=== PATIENT | female | born 1965 | race Caucasian/White ===

== ENCOUNTER 2017-03-01 09:53 | Emergency (ER) | payer OTHER ==
[~2017-03-01] VITALS: Ht 177.8 cm; Wt 110.4 kg
[~2017-03-01 09:53] MED LIST: ASPI-515 PO; AZIT-14 PO; CHOL500015 PO; DIPH25CA61 PO; ECHINACEA PO; LACT1CAP40 PO; LEVO25TA4 PO; MULT-516 PO; OMEP-110 PO; SIMV40TA3 PO; TAMS-11 PO; TRAZ100T15 PO; [UNRECOGNIZED DRUG - OTHER] PO
[2017-03-01 10:11] VITALS: BP 157/86
[2017-03-01] MEDS ORDERED: HYDROmorphone 1 MG/ML, 1ML IVPush PRN (11:30)
[2017-03-01] MEDS ORDERED: ONDANSETRON 2MG/ML, 2ML IVPush ONE (11:30)
[2017-03-01] MEDS ORDERED: SODIUM CHLORIDE FLUSH 10ML SYR IVF ONE (11:30)
[2017-03-01] MEDS ORDERED: SODIUM CHLORIDE 0.9% 1,000ML IVBOLUS ONE (11:30)
[2017-03-01 11:45] LABS: ASPARTATE AMINO TRANSFERASE 49 U/L (15-37); BLOOD UREA NITROGEN 15 mg/dL (7-18)
[2017-03-01] MEDS ORDERED: HYDROmorphone 1 MG/ML, 1ML ONE (12:12)
[2017-03-01] MEDS ORDERED: ONDANSETRON 2MG/ML, 2ML ONE (12:12)
== END 2017-03-01 13:30 | disposition home or self-care (01) ==
LOC: ED 12:49
DX: R19.7 Diarrhea, unspecified (principal); R10.84 Generalized abdominal pain; E78.5 Hyperlipidemia, unspecified; Z90.49 Acquired absence of other specified parts of digestive tract; Z90.710 Acquired absence of both cervix and uterus; Z88.0 Allergy status to penicillin; Z88.2 Allergy status to sulfonamides; Z88.5 Allergy status to narcotic agent
CPT/HCPCS: 36415; 80053; 83690; 83735; 85025; 96374; 96375; 99284; J1170; J2405; J7030

== ENCOUNTER 2017-05-17 09:10 | Emergency (ER) | payer OTHER ==
[~2017-05-17] VITALS: Ht 175.3 cm; Wt 111.6 kg
[~2017-05-17 09:10] MED LIST changes: -AZIT-14 PO; +AZIT250T89 PO
[2017-05-17] MEDS ORDERED: SODIUM CHLORIDE 0.9% 1,000 ML IV ONE (10:31)
[2017-05-17] MEDS ORDERED: MAALOX/HYOSCYAMINE/LIDOCAINE 45 ML BOTTLE ONE (10:44)
[2017-05-17] MEDS ORDERED: HYDROmorphone 1 MG/ML, 1ML ONE (10:44)
[2017-05-17] MEDS ORDERED: ONDANSETRON 2MG/ML, 2ML ONE (10:44)
[2017-05-17] MEDS ORDERED: FAMOTIDINE 20 MG/2 ML ONE (10:44)
[2017-05-17] MEDS ORDERED: SODIUM CHLORIDE FLUSH 10ML SYR IVF ONE (11:00)
[2017-05-17] MEDS ORDERED: MAALOX/HYOSCYAMINE/LIDOCAINE 45 ML BOTTLE PO ONE (11:00)
[2017-05-17] MEDS ORDERED: HYDROmorphone 1 MG/ML, 1ML IVPush PRN (11:00)
[2017-05-17] MEDS ORDERED: FAMOTIDINE 20 MG/2 ML IVP ONE (11:00)
[2017-05-17] MEDS ORDERED: ONDANSETRON 2MG/ML, 2ML IVPush ONE (11:00)
[2017-05-17] MEDS ORDERED: SODIUM CHLORIDE 0.9% 1,000ML IVBOLUS ONE (11:00)
[2017-05-17 11:30] LABS: PATH.CAST-FLAG NOT PRESENT; SPERM-FLAG NOT PRESENT; SRC-FLAG NOT PRESENT; XTAL-FLAG NOT PRESENT; YLC-FLAG NOT PRESENT
[2017-05-17 11:45] LABS: BLOOD UREA NITROGEN 11 mg/dL (7-18)
[2017-05-17 11:53] LABS: ASPARTATE AMINO TRANSFERASE 100 U/L (15-37)
[2017-05-17] MEDS ORDERED: DIPHENHYDRAMINE 50 MG/ML, 1ML ONE (12:35)
[2017-05-17 15:44] VITALS: BP 141/75
[2017-05-17] MEDS ORDERED: DIPHENHYDRAMINE 50 MG/ML, 1ML IVPush ONE (16:00)
== END 2017-05-17 15:51 | disposition home or self-care (01) ==
LOC: ED 09:54
DX: K29.20 Alcoholic gastritis without bleeding (principal); R10.13 Epigastric pain; F10.10 Alcohol abuse, uncomplicated; E78.5 Hyperlipidemia, unspecified; Z86.73 Personal history of transient ischemic attack (TIA), and cerebral infarction without residual deficits; Z90.49 Acquired absence of other specified parts of digestive tract; Z90.710 Acquired absence of both cervix and uterus
CPT/HCPCS: 36415; 74022; 76700; 80053; 81001; 83605; 83690; 84702; 84703; 85025; 85610; 93005; 96361; 96374; 96375; 99285; J1170; J1200; J2405; J7030; S0028

== ENCOUNTER → 2017-06-20 | Outpatient (CLI) | payer OTHER | END | disposition home or self-care (01) | LOC: RAD 10:28 | PROVIDERS: ATTEND Nurse Practitioner Family | DX: M51.87 Other intervertebral disc disorders, lumbosacral region (principal) | CPT/HCPCS: 72114 ==

== ENCOUNTER 2020-08-19 15:03 | Inpatient (IN) | payer OTHER ==
[~2020-08-19] VITALS: Ht 175.3 cm; Wt 102.4 kg
[~2020-08-19 15:03] MED LIST changes: +CYCL-259 PO; +GABA300C10 PO; +HYDR25TA6 PO; +SIMV40TA20 PO; -SIMV40TA3 PO; +TRAZ-175 PO; -TRAZ100T15 PO
--- NOTE | 2020-08-19 15:41 | NUR ---
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
[2020-08-19] MEDS ORDERED: SODIUM CHLORIDE FLUSH 10ML SYR IVF ONE (16:30)
[2020-08-19 16:39] LABS: MEAN CORPUSCULAR HEMOGLOBIN 30.3 pg (27.0-34.8); MEAN CORPUSCULAR HGB CONC 31.5 g/dL (32.4-35.8); MEAN PLATELET VOLUME 9.7 fL (7.4-10.4); PLATELET COUNT 209 x10^3/uL (130-400)
--- NOTE | 2020-08-19 16:44 | NUR ---
PT TO RADIOLOGY WITH TECH TRANSPORT
[2020-08-19 16:51] LABS: ALANINE AMINOTRANSFERASE 82 U/L (12-78); ALBUMIN 1.9 g/dL (3.4-5.0); ANION GAP 10 mmol/L (5-15); CALCIUM 8.8 mg/dL (8.5-10.1); CHLORIDE 97 mmol/L (98-107); CREATININE 2.08 mg/dL (0.55-1.02)
[2020-08-19 16:53] LABS: ALKALINE PHOSPHATASE 594 U/L (45-117); BILIRUBIN,TOTAL 10.3 mg/dL (0.2-1.0); TOTAL PROTEIN 7.5 g/dL (6.4-8.2)
[2020-08-19 16:59] LABS: MD YES
[2020-08-19 17:02] LABS: BAND#(MANUAL) 0.61 x10^3/uL; BANDS%(MANUAL) 4 % (0-7); EOS#(MANUAL) 0.15 x10^3/uL (0.0-0.4); EOS% (MANUAL) 1 % (1-7); LYMPH#(MANUAL) 1.06 x10^3/uL (1-3.4); LYMPHS% (MANUAL) 7 % (22-44); MONOS% (MANUAL) 2 % (2-9); SEG#(MANUAL) 13.07 x10^3/uL (1.8-6.8); SEGS% (MANUAL) 86 % (42-75)
[2020-08-19 17:03] LABS: ANISOCYTOSIS 1+
[2020-08-19 17:04] LABS: POLYCHROMASIA 1+
[2020-08-19 17:05] LABS: <PLATELET ESTIMATE> ADEQUATE; <PLT MORPHOLOGY> NORMAL PLT MORPH; TOXIC GRAN 1+
--- NOTE | 2020-08-19 17:55 | NUR ---
PT RTD FROM RADIOLOGY, REPORT REVIEWED, NO FX NOTED. C-COLLAR REMOVED. STRAIGHT CATH FOR URINE COMPLETED W/O DIFFICULTY. PT TOLLERATED WELL. VSS, CALL LIGHT W/I REACH
[2020-08-19 18:26] LABS: MICROSCOPIC INDICATED
--- NOTE | 2020-08-19 18:49 | NUR ---
BEDSIDE REPORT FROM PARKER PERALTA. PT LAYING IN BED, ANJUM.
[2020-08-19] MEDS ORDERED: CEFTRIAXONE PMX 1GM/50ML 50 ML IV ONE ×2 (19:00→21:00)
--- NOTE | 2020-08-19 19:04 | NUR ---
AWAITING BC TO BE DRAWN BEFORE ABX STARTED.
[2020-08-19 19:14] LABS: TROPONIN I 0.018 ng/mL (0.000-0.045)
[2020-08-19] MEDS ORDERED: PRED10TA PO (19:21)
[2020-08-19] MEDS ORDERED: BACL20TA PO (19:21)
[2020-08-19] MEDS ORDERED: HYDR-826 PO (19:21)
[2020-08-19] MEDS ORDERED: CEFTRIAXONE PMX 1GM/50ML 50 ML ONE (19:23)
--- NOTE | 2020-08-19 19:40 | NUR ---
ADMITTING PROVIDER AT BEDSIDE. FIRST ATTEMPT TO CALL REPORT AT THIS TIME.
--- NOTE | 2020-08-19 19:57 | NUR ---
REPORT GIVEN TO MATA MOSES RN.
[2020-08-19] MEDS: SODIUM CHLORIDE 0.45% 500 ML IV SCH (20:45)
[2020-08-19] MEDS ORDERED: MELATONIN 5 MG TABLET PO PRN (21:00)
[2020-08-19 21:41] LABS: POTASSIUM,URINE RANDOM 45 mmol/L; SODIUM,URINE RANDOM 10 mmol/L
[2020-08-19 21:42] LABS: CHLORIDE,URINE RANDOM < 10 mmol/L
[2020-08-19 21:57] LABS: INTERNATIONAL NORMALIZED RATIO 1.48 (0.93-1.1); PROTHROMBIN TIME 15.3 Seconds (9.6-11.5)
[2020-08-19] MEDS: HEPARIN 5,000 UNITS/ML, 1ML SQ SCH (21:58)
[2020-08-19 23:47] VITALS: BP 103/72
[2020-08-20] VITALS (9 sets, daily range): BP systolic 90–110; BP diastolic 58–76
[2020-08-20 01:16] LABS: TROPONIN I 0.019 ng/mL (0.000-0.045)
[2020-08-20] MEDS: SODIUM CHLORIDE 0.45% 500 ML IV SCH ×4 (01:45→21:00)
[2020-08-20] MEDS ORDERED: SODIUM CHLORIDE 0.45%, 1,000ML IVBOLUS ONE (02:00)
[2020-08-20] MEDS: HEPARIN 5,000 UNITS/ML, 1ML SQ SCH ×3 (06:12→21:25)
[2020-08-20 07:23] LABS: ALANINE AMINOTRANSFERASE 67 U/L (12-78); ALBUMIN 1.6 g/dL (3.4-5.0); ANION GAP 11 mmol/L (5-15); CALCIUM 8.4 mg/dL (8.5-10.1); CHLORIDE 95 mmol/L (98-107); CREATININE 2.43 mg/dL (0.55-1.02)
[2020-08-20 07:28] LABS: ALKALINE PHOSPHATASE 540 U/L (45-117); BILIRUBIN,TOTAL 8.8 mg/dL (0.2-1.0); TOTAL PROTEIN 6.7 g/dL (6.4-8.2)
[2020-08-20 07:38] LABS: INTERNATIONAL NORMALIZED RATIO 1.52 (0.93-1.1); PROTHROMBIN TIME 15.7 Seconds (9.6-11.5)
[2020-08-20 08:20] LABS: MD YES; MEAN CORPUSCULAR HEMOGLOBIN 30.8 pg (27.0-34.8); MEAN PLATELET VOLUME 9.5 fL (7.4-10.4); PLATELET COUNT 180 x10^3/uL (130-400); RED BLOOD COUNT 3.18 x10^6/uL (3.82-5.3); RED CELL DISTRIBUTION WIDTH 19.1 % (9.6-15.2)
[2020-08-20 08:22] LABS: <PLATELET ESTIMATE> ADEQUATE; <PLT MORPHOLOGY> NORMAL PLT MORPH; ANISOCYTOSIS 1+; BANDS%(MANUAL) 4 % (0-7); LYMPH#(MANUAL) 2.27 x10^3/uL (1-3.4); LYMPHS% (MANUAL) 15 % (22-44); MONOS#(MANUAL) 0.45 x10^3/uL (0.3-2.7); MONOS% (MANUAL) 3 % (2-9); POLYCHROMASIA 1+; SEG#(MANUAL) 11.78 x10^3/uL (1.8-6.8); SEGS% (MANUAL) 78 % (42-75); TARGET CELLS 1+
[2020-08-20] MEDS ORDERED: PANTOPRAZOLE 20MG TABLET PO SCH (10:00)
[2020-08-20] MEDS ORDERED: PHARMACOKINETIC CONSULTATION MC ONE (18:30)
[2020-08-20] MEDS ORDERED: VANCOMYCIN PMX 1GM/200ML 200 ML IV ONE (18:30)
[2020-08-20] MEDS ORDERED: VANCOMYCIN 1,800 MG in SODIUM CHLORIDE 0.9% 250 ML IV ONE (18:30)
[2020-08-20] MEDS ORDERED: PHARMACOKINETIC MONITORING MC PRN (18:30)
[2020-08-20] MEDS ORDERED: VANCOMYCIN PER PHARMACY MC PRN (18:30)
[2020-08-20] MEDS: CEFTRIAXONE PMX 2GM/50ML 50 ML IV SCH (21:25)
[2020-08-21 01:27] VITALS: BP 102/66
[2020-08-21] MEDS: HEPARIN 5,000 UNITS/ML, 1ML SQ SCH ×3 (05:32→21:18)
[2020-08-21 05:51] LABS: ALBUMIN 1.7 g/dL (3.4-5.0); ANION GAP 10 mmol/L (5-15); CALCIUM 8.4 mg/dL (8.5-10.1); CHLORIDE 95 mmol/L (98-107)
[2020-08-21 05:55] LABS: ALANINE AMINOTRANSFERASE 66 U/L (12-78); ALKALINE PHOSPHATASE 570 U/L (45-117); BILIRUBIN,TOTAL 8.1 mg/dL (0.2-1.0); CREATININE 2.38 mg/dL (0.55-1.02)
[2020-08-21 06:49] LABS: MD YES; MEAN CORPUSCULAR HEMOGLOBIN 30.5 pg (27.0-34.8); MEAN CORPUSCULAR HGB CONC 31.3 g/dL (32.4-35.8); MEAN PLATELET VOLUME 9.4 fL (7.4-10.4); PLATELET COUNT 187 x10^3/uL (130-400); RED BLOOD COUNT 3.49 x10^6/uL (3.82-5.3)
[2020-08-21 06:51] LABS: ANISOCYTOSIS 1+; BAND#(MANUAL) 0.13 x10^3/uL; BANDS%(MANUAL) 1 % (0-7); EOS#(MANUAL) 0.13 x10^3/uL (0.0-0.4); EOS% (MANUAL) 1 % (1-7); LYMPH#(MANUAL) 1.88 x10^3/uL (1-3.4); LYMPHS% (MANUAL) 14 % (22-44); METAMYELOCYTES# (MANUAL) 0.27 x10^3/uL (0-0); METAMYELOCYTES% (MANUAL) 2 % (0-1); MONOS#(MANUAL) 0.67 x10^3/uL (0.3-2.7); MONOS% (MANUAL) 5 % (2-9); MYELOCYTES# (MANUAL) 0.13 x10^3/uL (0-0); MYELOCYTES% (MANUAL) 1 % (0-0); POLYCHROMASIA 1+; SEG#(MANUAL) 10.18 x10^3/uL (1.8-6.8); SEGS% (MANUAL) 76 % (42-75)
[2020-08-21 06:52] LABS: TARGET CELLS 1+
[2020-08-21 06:53] LABS: <PLATELET ESTIMATE> ADEQUATE; <PLT MORPHOLOGY> NORMAL PLT MORPH
[2020-08-21 07:08] VITALS: BP 98/64
[2020-08-21] MEDS: SODIUM CHLORIDE 0.45% 500 ML IV SCH ×2 (08:30→17:00)
[2020-08-21] MEDS ORDERED: PHARMACOKINETIC MONITORING MC PRN (10:00)
[2020-08-21 12:23] VITALS: BP 96/59
[2020-08-21 20:11] VITALS: BP 99/59
[2020-08-21] MEDS: CEFTRIAXONE PMX 2GM/50ML 50 ML IV SCH (21:18)
[2020-08-22] MEDS: SODIUM CHLORIDE 0.45% 500 ML IV SCH ×3 (00:50→23:20)
[2020-08-22 00:51] VITALS: BP 100/65
[2020-08-22] MEDS: HEPARIN 5,000 UNITS/ML, 1ML SQ SCH ×3 (05:00→21:10)
[2020-08-22] MEDS ORDERED: VANCOMYCIN 1,500 MG in SODIUM CHLORIDE 0.9% 250 ML IV SCH (06:00)
[2020-08-22 06:55] VITALS: BP 98/63
[2020-08-22 07:55] LABS: MEAN CORPUSCULAR HEMOGLOBIN 30.3 pg (27.0-34.8); MEAN CORPUSCULAR HGB CONC 31.7 g/dL (32.4-35.8); MEAN PLATELET VOLUME 9.4 fL (7.4-10.4); PLATELET COUNT 171 x10^3/uL (130-400); RED BLOOD COUNT 3.35 x10^6/uL (3.82-5.3); RED CELL DISTRIBUTION WIDTH 18.9 % (9.6-15.2)
[2020-08-22 08:01] LABS: ALANINE AMINOTRANSFERASE 63 U/L (12-78); ALBUMIN 1.5 g/dL (3.4-5.0); ANION GAP 9 mmol/L (5-15); CALCIUM 8.1 mg/dL (8.5-10.1); CHLORIDE 94 mmol/L (98-107); CREATININE 1.77 mg/dL (0.55-1.02)
[2020-08-22 08:03] LABS: ALKALINE PHOSPHATASE 594 U/L (45-117); BILIRUBIN,TOTAL 6.8 mg/dL (0.2-1.0); TOTAL PROTEIN 6.6 g/dL (6.4-8.2)
[2020-08-22 08:22] LABS: MD YES
[2020-08-22 08:23] LABS: BAND#(MANUAL) 0.12 x10^3/uL; BANDS%(MANUAL) 1 % (0-7); EOS#(MANUAL) 0.12 x10^3/uL (0.0-0.4); EOS% (MANUAL) 1 % (1-7); LYMPHS% (MANUAL) 18 % (22-44); MONOS#(MANUAL) 0.73 x10^3/uL (0.3-2.7); MONOS% (MANUAL) 6 % (2-9); SEG#(MANUAL) 9.03 x10^3/uL (1.8-6.8); SEGS% (MANUAL) 74 % (42-75)
[2020-08-22 08:24] LABS: <PLATELET ESTIMATE> ADEQUATE; <PLT MORPHOLOGY> NORMAL PLT MORPH; ANISOCYTOSIS 1+; POLYCHROMASIA 1+; TARGET CELLS 1+
[2020-08-22 13:39] VITALS: BP 105/69
[2020-08-22] MEDS ORDERED: PHARMACY MAY ADJ FOR RENAL FX MC PRN (16:00)
[2020-08-22] MEDS: MEROPENEM 1 GM in SODIUM CHLORIDE 0.9% 100 ML IV SCH ×2 (17:34→23:23)
[2020-08-22 19:53] VITALS: BP 95/60
[2020-08-22] MEDS ORDERED: DIPHENHYDRAMINE 25 MG CAPSULE PO PRN (21:00)
[2020-08-22] MEDS ORDERED: CYCLOBENZAPRINE 10 MG TABLET PO PRN (21:00)
[2020-08-22] MEDS: ONDANSETRON ODT 4 MG PO PRN (21:11)
[2020-08-22] MEDS: GABAPENTIN 300 MG CAPSULE PO SCH (21:11)
[2020-08-22] MEDS: OXYcodone IR 5MG TABLET PO PRN (21:11)
[2020-08-22] MEDS ORDERED: TRAZODONE 100MG TABLET PO PRN (21:30)
[2020-08-23 01:50] VITALS: BP 93/61
[2020-08-23 05:37] LABS: MEAN CORPUSCULAR HEMOGLOBIN 30.4 pg (27.0-34.8); MEAN CORPUSCULAR HGB CONC 32.1 g/dL (32.4-35.8); MEAN PLATELET VOLUME 9.1 fL (7.4-10.4); PLATELET COUNT 134 x10^3/uL (130-400); RED BLOOD COUNT 3.17 x10^6/uL (3.82-5.3); RED CELL DISTRIBUTION WIDTH 18.8 % (9.6-15.2)
[2020-08-23] MEDS: LEVOTHYROXINE 50 MCG TABLET PO SCH (05:45)
[2020-08-23] MEDS: HEPARIN 5,000 UNITS/ML, 1ML SQ SCH ×3 (05:45→21:09)
[2020-08-23 05:48] LABS: CHLORIDE 97 mmol/L (98-107)
[2020-08-23 05:55] LABS: ALANINE AMINOTRANSFERASE 61 U/L (12-78); ALBUMIN 1.4 g/dL (3.4-5.0); ALKALINE PHOSPHATASE 618 U/L (45-117); ANION GAP 8 mmol/L (5-15); BILIRUBIN,TOTAL 6.6 mg/dL (0.2-1.0); CALCIUM 7.9 mg/dL (8.5-10.1); CREATININE 1.18 mg/dL (0.55-1.02); TOTAL PROTEIN 6.2 g/dL (6.4-8.2); VANCOMYCIN,RANDOM 20.2 mcg/mL
[2020-08-23 06:50] LABS: BASOPHILS # (AUTO) 0.06 x10^3/uL (0-0.1); BASOPHILS % (AUTO) 1 % (0-1); EOSINOPHILS % (AUTO) 1 % (1-7); LYMPHOCYTES # (AUTO) 2.38 x10^3/uL (1-3.4); LYMPHOCYTES % (AUTO) 21 % (22-44); MD SCAN; MONOCYTES # (AUTO) 0.51 x10^3/uL (0.2-0.8); MONOCYTES % (AUTO) 5 % (2-9); NEUTROPHILS % (AUTO) 73 % (42-75)
[2020-08-23 07:18] VITALS: BP 98/51
[2020-08-23] MEDS: SODIUM CHLORIDE 0.45% 1,000 ML IV SCH ×2 (08:00→17:25)
[2020-08-23] MEDS: MEROPENEM 1 GM in SODIUM CHLORIDE 0.9% 100 ML IV SCH ×2 (08:13→15:36)
[2020-08-23] MEDS: GABAPENTIN 300 MG CAPSULE PO SCH ×2 (08:15→21:09)
[2020-08-23] MEDS: HYDROCHLOROTHIAZIDE 25 MG TABLET PO SCH (08:16)
[2020-08-23] MEDS: VANCOMYCIN 1,500 MG in SODIUM CHLORIDE 0.9% 250 ML IV SCH (10:15)
[2020-08-23] MEDS: OXYcodone IR 5MG TABLET PO PRN ×2 (12:06→20:02)
[2020-08-23 12:56] VITALS: BP 103/69
[2020-08-23 19:47] VITALS: BP 99/60
[2020-08-23] MEDS ORDERED: SODIUM CHLORIDE 0.45% 1,000 ML IV SCH (20:45)
[2020-08-23] MEDS: ONDANSETRON ODT 4 MG PO PRN (21:22)
[2020-08-24] MEDS: MEROPENEM 1 GM in SODIUM CHLORIDE 0.9% 100 ML IV SCH ×3 (00:17→17:00)
[2020-08-24 02:51] VITALS: BP 88/58
[2020-08-24] MEDS: LEVOTHYROXINE 50 MCG TABLET PO SCH (06:02)
[2020-08-24] MEDS: HEPARIN 5,000 UNITS/ML, 1ML SQ SCH ×3 (06:02→19:50)
[2020-08-24] MEDS: SODIUM CHLORIDE 0.45% 1,000 ML IV SCH (06:03)
[2020-08-24 06:58] VITALS: BP 97/53
[2020-08-24] MEDS: HYDROCHLOROTHIAZIDE 25 MG TABLET PO SCH (08:28)
[2020-08-24] MEDS: GABAPENTIN 300 MG CAPSULE PO SCH ×2 (08:28→19:50)
[2020-08-24] MEDS: VANCOMYCIN 1,500 MG in SODIUM CHLORIDE 0.9% 250 ML IV SCH (11:59)
[2020-08-24 13:39] VITALS: BP 93/60
[2020-08-24] MEDS ORDERED: CIPR500T87 PO (16:05)
[2020-08-24] MEDS ORDERED: LINE600T12 PO (16:05)
[2020-08-24 19:06] VITALS: BP 96/61
[2020-08-24] MEDS: OXYcodone IR 5MG TABLET PO PRN (19:51)
[2020-08-25] MEDS: MEROPENEM 1 GM in SODIUM CHLORIDE 0.9% 100 ML IV SCH ×2 (00:16→08:57)
[2020-08-25 01:29] VITALS: BP 95/61
[2020-08-25] MEDS: LEVOTHYROXINE 50 MCG TABLET PO SCH (05:42)
[2020-08-25] MEDS: HEPARIN 5,000 UNITS/ML, 1ML SQ SCH (05:43)
[2020-08-25 07:04] VITALS: BP 81/56
[2020-08-25] MEDS: GABAPENTIN 300 MG CAPSULE PO SCH (08:57)
[2020-08-25] MEDS ORDERED: CIPROFLOXACIN 500 MG TABLET PO ONE (13:00)
== END 2020-08-25 13:51 | disposition home or self-care (01) | DRG 871 ==
LOC: ED 17:59 → EDIP 18:41 → 3N 20:20
PROVIDERS: ADMIT Internal Medicine; ATTEND Internal Medicine
DX: A41.9 Sepsis, unspecified organism (principal); E43 Unspecified severe protein-calorie malnutrition; G93.41 Metabolic encephalopathy; N17.0 Acute kidney failure with tubular necrosis; J98.11 Atelectasis; E87.1 Hypo-osmolality and hyponatremia; E87.2 Acidosis; J90 Pleural effusion, not elsewhere classified; L03.115 Cellulitis of right lower limb; L03.116 Cellulitis of left lower limb; N39.0 Urinary tract infection, site not specified; B96.89 Other specified bacterial agents as the cause of diseases classified elsewhere; D63.8 Anemia in other chronic diseases classified elsewhere; E03.9 Hypothyroidism, unspecified; E11.65 Type 2 diabetes mellitus with hyperglycemia; E78.5 Hyperlipidemia, unspecified; F10.21 Alcohol dependence, in remission; F17.200 Nicotine dependence, unspecified, uncomplicated; K70.30 Alcoholic cirrhosis of liver without ascites; E07.9 Disorder of thyroid, unspecified; K70.40 Alcoholic hepatic failure without coma; Y90.9 Presence of alcohol in blood, level not specified; W01.0XXA Fall on same level from slipping, tripping and stumbling without subsequent striking against object, initial encounter; Z51.5 Encounter for palliative care; Z83.3 Family history of diabetes mellitus; Z86.73 Personal history of transient ischemic attack (TIA), and cerebral infarction without residual deficits; Z90.710 Acquired absence of both cervix and uterus; Z68.33 Body mass index [BMI] 33.0-33.9, adult; Y93.89 Activity, other specified; Y92.89 Other specified places as the place of occurrence of the external cause; Y99.8 Other external cause status
CPT/HCPCS: 36415; 70450; 71045; 72072; 72125; 76770; 80053; 80202; 81001; 82140; 82306; 82436; 82962; 83036; 83605; 83735; 83970; 84100; 84133; 84300; 84443; 84484; 85025; 85610; 87040; 87077; 87086; 87186; 93005; 93306; 93970; 96374; G0378; J0696; J1644; J2185; J3370; Q0162; J7050; J7512; Q0177